=== PATIENT | female | born 1995 | race Caucasian/White ===

== ENCOUNTER 2019-05-18 09:06 | Inpatient (IN) | payer OTHER ==
[2019-05-25] MEDS ORDERED: Lidocaine 2% MPF 10 ML AMP (For Epidural Use) ONE (14:49)
[2019-05-25] MEDS ORDERED: Bupivacaine/Epinephrine 0.25% 30 ML VIAL ONE (14:49)
[2019-05-25] MEDS ORDERED: Diphenoxylate HCl/Atropine Tablet PO PRN ×2 (20:19)
[2019-05-25] MEDS ORDERED: Acetaminophen 500 MG TAB PO PRN (20:19)
[2019-05-25] MEDS ORDERED: NS w/ Oxytocin 10 units 500 ML IV SCH (20:19)
[2019-05-25] MEDS ORDERED: Misoprostol 200 MCG TAB PR PRN (20:19)
[2019-05-25] MEDS ORDERED: Zolpidem Tartrate 5 MG TAB PO PRN (20:19)
[2019-05-25] MEDS ORDERED: Promethazine HCl 25 MG/ML VIAL IM PRN (20:19)
[2019-05-25] MEDS ORDERED: hydrALAZINE 20 MG/ML VIAL SLOW IVP PRN (20:19)
[2019-05-25] MEDS ORDERED: Lidocaine 1% (PF) 30 ML VIAL SC PRN (20:19)
[2019-05-25] MEDS ORDERED: Ibuprofen 800 MG TAB PO PRN (20:19)
[2019-05-25] MEDS ORDERED: HYDROcodone/Acetaminophen 5/325 mg Tablet PO PRN ×2 (20:19)
[2019-05-25] MEDS ORDERED: Butorphanol Tartrate 1 MG/ML VIAL SLOW IVP PRN (20:19)
[2019-05-25] MEDS ORDERED: Docusate 100 MG CAP PO PRN (20:19)
[2019-05-25] MEDS ORDERED: NS / Oxytocin 40 units/1000ml 1,000 ML IV PRN (20:19)
[2019-05-25 20:30] VITALS: BMI 38.2
[2019-05-25] MEDS: Misoprostol 100 MCG TAB VAG SCH (20:52)
[2019-05-25] MEDS: Lactated Ringer's 1,000 ML IV SCH (20:58)
[2019-05-25 21:11] LABS: Hemoglobin 11.8 g/dL (12.0-16.0); Mean Corpuscular HGB CONC 34.3 g/dL (32.0-36.0); Mean Corpuscular Hemoglobin 28.9 pg (27.0-31.0); Mean Corpuscular Volume 84.2 fL (78.0-98.0); Mean Platelet Volume 8.4 fL (7.4-10.4); Platelet Count 262 thou/uL (130-400); RBC Distribution Width 14.7 % (11.5-14.5); Red Blood Cell (RBC) Count 4.08 mill/uL (4.20-5.40); White Blood Cell (WBC) Count 12.6 thou/uL (4.8-10.8)
[2019-05-25 21:50] LABS: Syphilis Antibody Nonreactive (Nonreactive); Syphilis Antibody Index 0.05 S/CO (<1.00 Non-Reactive)
[2019-05-25 23:48] LABS: HBSAg Index 0.14 S/CO (0-0.99); Hep B Surf Ag Non-Reactive S/CO (NonReactive)
[2019-05-26] MEDS ORDERED: Fentanyl 4 mcg/Bup 0.1% Cadd 100 ML ONE ×3 (01:05→13:32)
[2019-05-26] MEDS: Lactated Ringer's 1,000 ML IV SCH ×3 (02:14→14:22)
[2019-05-26] MEDS: Misoprostol 100 MCG TAB VAG SCH ×4 (02:24→23:06)
[2019-05-26] MEDS ORDERED: ePHEDrine/0.9% NaCl/PF SYRINGE 50 mg/10 ml SLOW IVP PRN (02:26)
[2019-05-26] MEDS ORDERED: diphenhydrAMINE 50 MG/ML VIAL IVP PRN (02:26)
[2019-05-26] MEDS ORDERED: Acetaminophen 325 MG TAB PO PRN (02:26)
[2019-05-26] MEDS ORDERED: Promethazine HCl 25 MG/ML VIAL IM PRN (02:26)
[2019-05-26] MEDS ORDERED: Ondansetron PF 4 MG/2 ML Vial IVP PRN (02:26)
[2019-05-26] MEDS ORDERED: Lactated Ringer's 500 ML IV PRN (02:26)
[2019-05-26] MEDS ORDERED: Naloxone HCl 0.4 mg/ml Vial IVP PRN ×2 (02:26)
[2019-05-26] MEDS ORDERED: Communication Order-Pharmacy FS SCH (02:30)
[2019-05-26] MEDS ORDERED: Fentanyl 4 mcg/Bupivacaine 0.1% Cassette 100 ML EPIDURAL SCH (02:30)
[2019-05-26] MEDS: Ondansetron PF 4 MG/2 ML Vial IVP PRN ×2 (03:37→13:59)
[2019-05-26] MEDS: NS w/ Oxytocin 10 units 500 ML IV SCH ×2 (04:52→23:07)
[2019-05-26] MEDS ORDERED: Terbutaline Sulfate 1 MG/ML VIAL ONE (17:20)
[2019-05-26] MEDS ORDERED: diphenhydrAMINE 25 MG CAP PO PRN (22:45)
[2019-05-26] MEDS ORDERED: Lanolin Ointment 7 GM TUBE TOP PRN (22:45)
[2019-05-26] MEDS ORDERED: Benzocaine-Menthol 82.5 ML CAN TOP PRN (22:45)
[2019-05-26] MEDS ORDERED: Ondansetron PF 4 MG/2 ML Vial SLOW IVP PRN (22:46)
[2019-05-26] MEDS ORDERED: Acetaminophen 500 MG TAB PO PRN (22:46)
[2019-05-26] MEDS ORDERED: hydrALAZINE 20 MG/ML VIAL SLOW IVP PRN (22:48)
[2019-05-26] MEDS ORDERED: NS / Oxytocin 40 units/1000ml 1,000 ML IV SCH (23:00)
[2019-05-26] MEDS: Ibuprofen 800 MG TAB PO SCH (23:21)
[2019-05-27] MEDS: Misoprostol 100 MCG TAB VAG SCH ×6 (05:43→19:28)
[2019-05-27] MEDS: Lactated Ringer's 1,000 ML IV SCH ×3 (05:44→19:25)
[2019-05-27] MEDS: Ibuprofen 800 MG TAB PO SCH ×3 (06:08→21:12)
[2019-05-27] MEDS: Ferrous Sulfate 325 MG TAB PO SCH ×2 (07:04→21:13)
[2019-05-27] MEDS: Docusate Calcium (SURFAK) 240 MG CAP PO SCH ×2 (08:16→21:12)
[2019-05-27] MEDS: Prenatal Vitamin 1 TAB PO SCH (08:16)
[2019-05-27] MEDS: NS w/ Oxytocin 10 units 500 ML IV SCH (19:26)
[2019-05-28] MEDS: Lactated Ringer's 1,000 ML IV SCH (02:47)
[2019-05-28] MEDS: Ibuprofen 800 MG TAB PO SCH ×2 (05:59→07:53)
[2019-05-28] MEDS: Prenatal Vitamin 1 TAB PO SCH (07:53)
[2019-05-28] MEDS: Docusate Calcium (SURFAK) 240 MG CAP PO SCH (07:53)
[2019-05-28 08:10] VITALS: BP 128/74; TEMP 98.7
== END 2019-05-28 10:55 | disposition home or self-care (01) | DRG 807 ==
LOC: EDSTATUS 09:06 → L&D 05-25 19:17 → 3SW 05-26 22:13
PROVIDERS: ADMIT Obstetrics & Gynecology; ATTEND Obstetrics & Gynecology
PROC: 10E0XZZ Delivery of Products of Conception, External Approach (ICD-10-PCS; principal; 2019-05-26)
PROC: 0KQM0ZZ Repair Perineum Muscle, Open Approach (ICD-10-PCS; 2019-05-26)
PROC: 10907ZC Drainage of Amniotic Fluid, Therapeutic from Products of Conception, Via Natural or Artificial Opening (ICD-10-PCS; 2019-05-26)
PROC: 3E0P7VZ Introduction of Hormone into Female Reproductive, Via Natural or Artificial Opening (ICD-10-PCS; 2019-05-26)
DX: O48.0 Post-term pregnancy (principal); Z3A.40 40 weeks gestation of pregnancy; Z37.0 Single live birth; O99.02 Anemia complicating childbirth; D64.9 Anemia, unspecified; O99.344 Other mental disorders complicating childbirth; F41.9 Anxiety disorder, unspecified; O70.1 Second degree perineal laceration during delivery; O62.2 Other uterine inertia
CPT/HCPCS: 36415; 51702; 85027; 86780; 86850; 86900; 86901; 87340; J2001; J2405; J2590; J3105